=== PATIENT | female | born 1955 | race Caucasian/White ===

== ENCOUNTER 2021-06-18 01:59 | Outpatient (CLI) | payer BC, SELFPAY ==
--- NOTE | 2021-06-18 13:00 | DI.MAMMO_ITS ---
Exam(s) MAMMO SCREENING EXAM: MAMMO SCREENING CLINICAL HISTORY: SCREENING FOR BREAST CANCER Z12.39. TECHNIQUE: Bilateral full field digital CC and MLO mammographic images were obtained with 3D tomosyn thesis and utilizing computer aided detection (CAD). COMPARISON: Prior mammograms dating back to 2014, the most recent being December 2018. FINDINGS: There is a right breast biopsy marker which is unchanged position from 2014. Just anterior to the biopsy marker clip on right CC view there is a density measuring 1.5 x 0.6 cm wh ich is unchanged from 2019 more evident than 2014. Better seen on the CC than the MLO view. Spot co mpression recommended. No malignant-appearing microcalcification groups in this region. Scattered b enign-appearing microcalcifications are noted in both breasts. Also vascular calcification both keena sts noted. In the left breast on the 3D MLO view there is a an asymmetric density-possible nodule located 9 cm i n from the nipple, measuring 8 by 6 millimeters. In the right breast there is also a 9 x 5 millimeter noncalcified asymmetric density-possible nodule located 11 cm in from the nipple on the MLO view. There is no significant architectural distortion nor skin thickening-retraction. IMPRESSION: Bilateral asymmetric densities-possible nodules. Spot compression bilateral views and ultrasound rec ommended BI-RADS Category 0 - Assessment Incomplete: Need additional imaging evaluation Breast Density - Category B - Scattered areas of fibroglandular density Breast density Category C or D implies that the patient has dense breast tissue. Dense breast tissue can make it harder to find cancer on a mammogram. Dense breast tissue is also associated with an incr eased risk of breast cancer. This information about the result of the mammogram report was provided to the patient to raise their awareness. Use this report when you speak with the patient about their risks for breast cancer, which includes their family history. At that time, you may recommend additional screening tests (Ultrasoun d or MRI) as these tests may add significant information. A negative radiographic report should not delay biopsy if a dominant or clinically suspicious mass is present. Up to ten percent of cancers are not identified on mammography. A negative report may reinforce clinical impression. Adenosis and dense breasts may obscure an underlying neoplasm. False positive reports average 6 to 10%. Patient will receive a letter notifying them of these results.
== END 2021-06-18 02:19 ==
PROVIDERS: Visit Provider Nurse Practitioner
DX: Z12.31 Encounter for screening mammogram for malignant neoplasm of breast (principal); R92.8 Other abnormal and inconclusive findings on diagnostic imaging of breast
CPT/HCPCS: 77063; 77067

== ENCOUNTER 2021-07-01 01:33 | Outpatient (CLI) | payer BC, SELFPAY ==
--- NOTE | 2021-07-01 | DI.US_ITS ---
Exam(s) US BREAST RT LIMITED US BREAST LT LIMITED MG MAMMO SCREEN CALL BACK BI EXAM: MG MAMMO SCREEN CALL BACK BI and bilateral ultrasound breast limited CLINICAL HISTORY: F/U ABNL MAMMO, DIONISIO ASYMMETRIC DENSITIES, R92.8. TECHNIQUE: Craniocaudal and mediolateral oblique Full Field Digital Mammography views of the bilater al breast with Computer Aided Diagnosis followed by Tomosynthesis and bilateral breast ultrasound. COMPARISON: Comparison is made with prior examinations. FINDINGS: Mammography/Tomosynthesis: Masses/Architectural Distortion: There is a biopsy clip in the upper-outer quadrant of the right keena [address]. The opacity in the upper outer quadrant of the right breast persists. It may represent fibrogla ndular tissue. It has a similar appearance compared to the prior examinations. On the right breast ultrasound, there is an area of decreased linear echogenicity at the 11 o'clock position of the right breast which may represent fibroglandular tissue. It does not have a masslike appearance under dire ct visualization. In the left breast, the asymmetric breast tissue in the upper aspect is again seen on the additional view. It has a similar appearance compared to prior examinations. Microcalcifictions: No suspicious pleomorphic-type are seen. Skin Thickening/Nipple Retraction: None. Bilateral breast US: Echotexture: Normal appearance of the glandular tissue. Shadowing: No suspicious foci. Cyst: There are cysts seen in the left breast including a complex cyst at the 2 o'clock position whic h may have an internal septation. No suspicious cystic or solid masses are seen in the left breast. Solid lesions: None seen. Ductal dilation: None. IMPRESSION: 1. No definite evidence for malignancy at this time. 2. A follow-up right mammogram and ultrasound of the right breast is requested at 3 months. 3. The findings were discussed with the patient on the date of the examination. BI-RADS Category 3 - Probably Benign Finding: Recommend follow-up imaging in 3 months Breast Density - Category B - Scattered areas of fibroglandular density Breast density Category C or D implies that the patient has dense breast tissue. Dense breast tissue can make it harder to find cancer on a mammogram. Dense breast tissue is also associated with an incr eased risk of breast cancer. This information about the result of the mammogram report was provided to the patient to raise their awareness. Use this report when you speak with the patient about their risks for breast cancer, which includes their family history. At that time, you may recommend additional screening tests (Ultrasoun d or MRI) as these tests may add significant information. A negative radiographic report should not delay biopsy if a dominant or clinically suspicious mass is present. Up to ten percent of cancers are not identified on mammography. A negative report may reinforce clinical impression. Adenosis and dense breasts may obscure an underlying neoplasm. False positive reports average 6 to 10%. Patient will receive a letter notifying them of these results.
== END 2021-07-01 01:53 ==
PROVIDERS: Visit Provider Nurse Practitioner
DX: Z12.31 Encounter for screening mammogram for malignant neoplasm of breast (principal); R92.8 Other abnormal and inconclusive findings on diagnostic imaging of breast
CPT/HCPCS: 76642; 77063; 77067

== ENCOUNTER 2021-09-21 00:20 | Outpatient (CLI) | payer BC, SELFPAY ==
--- NOTE | 2021-09-21 | DI.US_ITS ---
Exam(s) MG MAMMO DIAGNOSTIC UNI US BREAST RT LIMITED EXAM: MG MAMMO DIAGNOSTIC UNI CLINICAL HISTORY: DIAGNOSTIC, F/U ABNL MAMMO, 3 MO F/U,Z87.898. COMPARISON: US US BREAST RT LIMITED from 07/01/2021 Mammograms from 2013, 2018 and 2020. TECHNIQUE: Craniocaudal and mediolateral oblique Full Field Digital Mammography views of the breast with Computer Aided Diagnosis followed by Tomosynthesis and breast ultrasound. FINDINGS: Mammography/Tomosynthesis: Masses/Architectural Distortion: None seen. Stable area focal breast tissue density in the upper ou ter quadrant. Microcalcifications: Stable benign-appearing calcifications greatest in the upper outer quadrant. Va scular calcifications. No suspicious pleomorphic-type are seen. Skin Thickening/Nipple Retraction: None. Right breast US: Echotexture: Normal appearance of the glandular tissue. Shadowing: No suspicious foci. Cyst: 4 x 3 x 6 millimeter cyst 11 o'clock position, 3 centimeters from the nipple. Solid lesions: No change in appearance of linear hyperechoic area in the 11 o'clock position 1 cm fro m the nipple. Findings do not appear masslike. Ductal dilation: None. IMPRESSION: 1. No evidence of malignancy is noted. 2. Unless there is more urgent need, follow-up screening mammography is recommended, as per [employer] guidelines. The patient is due for bilateral mammography June 2022 BI-RADS Category 3 - Annual - Resume Annual Screening Breast Density - Category B - Scattered areas of fibroglandular density A negative radiographic report should not delay biopsy if a dominant or clinically suspicious mass is present. Up to ten percent of cancers are not identified on mammography. A negative report may reinforce clinical impression. Adenosis and dense breasts may obscure an underlying neoplasm. False positive reports average 6 to 10%. Patient will receive a letter notifying them of these results.
== END 2021-09-21 00:40 ==
PROVIDERS: Visit Provider Nurse Practitioner
DX: R92.8 Other abnormal and inconclusive findings on diagnostic imaging of breast (principal); N60.01 Solitary cyst of right breast; N60.81 Other benign mammary dysplasias of right breast
CPT/HCPCS: 76642; 77061; 77065; G0279

== ENCOUNTER 2021-11-02 13:35 | Outpatient (REF) | payer BC, SELFPAY ==
[2021-11-02 16:53] LABS: Abs Immature Grans 0.02 10^3/uL (0.0-0.06); Absolute Basophil Count 0.05 10^3/uL (0.0-0.2); Absolute Eosinophil Count 0.21 10^3/uL (0.0-0.7); Absolute Lymphocyte Count 2.75 10^3/uL (1.2-3.4); Absolute Monocyte Count 0.42 10^3/uL (0.1-0.8); Absolute Neutrophil Count 3.48 10^3/uL (1.2-6.7); Basophils % 0.7; HCT 41.7 % (36.0-46.0); Immature Grans % 0.3; Lymphocytes % 39.7; MCH 27.3 pg (27.0-33.0); MCHC 31.2 % (32.0-36.0); MCV 87.6 fL (80-95); Monocytes % 6.1; Neutrophils % 50.2; Platelet Count 250 10^3/uL (130-400); RBC 4.76 10^6/uL (3.93-5.22); RDW 14.5 % (11.7-14.6); RDW-SD 46.9 fL; WBC 6.93 10^3/uL (4.4-10.8)
[2021-11-02 18:11] LABS: ALT 30 U/L (14-59); AST 21 U/L (15-37); Albumin 3.5 g/dL (3.4-5.0); Alkaline Phosphatase 83 U/L (46-116); Anion Gap 7.5 mmol/L (3-11); BUN 19 mg/dL (7-18); Bilirubin, Total 0.4 mg/dL (0.2-1.0); CO2 28.5 mmol/L (21.0-32.0); CREATININE 0.7 mg/dL (0.55-1.02); Calcium 8.8 mg/dL (8.5-10.1); Calculated LDL 179 mg/dL (<100); Chloride 106 mmol/L (98-107); Cholesterol 267 mg/dL (<200); Glucose 89 mg/dL (74-106); HDL Cholesterol 63 mg/dL (40-60); Magnesium 2.3 mg/dL (1.8-2.4); Potassium 4.5 mmol/L (3.5-5.1); Sodium 142 mmol/L (136-145); Total Protein 6.8 g/dL (6.4-8.2); Triglyceride 125 mg/dL (<150)
== END 2021-11-02 13:36 | disposition home or self-care (01) ==
LOC: NCHCN 13:35
PROVIDERS: Visit Provider Nurse Practitioner Family
DX: K58.9 Irritable bowel syndrome, unspecified (principal); Z98.84 Bariatric surgery status; K21.9 Gastro-esophageal reflux disease without esophagitis; F33.41 Major depressive disorder, recurrent, in partial remission; F41.8 Other specified anxiety disorders; G47.33 Obstructive sleep apnea (adult) (pediatric); E78.5 Hyperlipidemia, unspecified; Z00.00 Encounter for general adult medical examination without abnormal findings
CPT/HCPCS: 80053; 80061; 83735; 85025

== ENCOUNTER 2022-08-19 17:10 | Outpatient (REF) | payer BC, OTHER, SELFPAY ==
--- NOTE | 2022-08-19 16:15 | SKI_PTH ---
PATIENT: Chelsie Dunham LOC: [facility]#:[id number] AGE/SX: 67/F ROOM: RE08/19/[address]: STU MARC NP : 1955 BED: DIS: 08/19/2022 SPEC #: [id number] RECD: 08/19/22 18:12 STATUS: JESSICA REQ #: [id number] NIGEL: 08/19/22 16:[address]: STU MARC DEPT: Surgical Specimen RECD BY: Angelia Whitt ENTERED: 08/19/22 18:13 SP TYPE: SKI BEBE DR: Unknown,Unknown Tissues: 1 - SKIN BIOPSY(SHAVE/PUNCH) Procedures: SKIN LEVEL 4 Comments: [id number]
[2022-08-19 18:51] LABS: ALT 32 U/L (14-59); AST 30 U/L (15-37); Albumin 3.8 g/dL (3.4-5.0); Alkaline Phosphatase 84 U/L (46-116); Anion Gap 9.5 mmol/L (3-11); BUN 16 mg/dL (7-18); Bilirubin, Total 0.3 mg/dL (0.2-1.0); CO2 25.5 mmol/L (21.0-32.0); CREATININE 0.8 mg/dL (0.55-1.02); Calcium 9.8 mg/dL (8.5-10.1); Calculated LDL 86 mg/dL (<100); Chloride 107 mmol/L (98-107); Cholesterol 188 mg/dL (<200); Estimated GFR 81.72 (mL/min/1.73m2); Glucose 101 mg/dL (74-106); HDL Cholesterol 63 mg/dL (40-60); Potassium 4.2 mmol/L (3.5-5.1); Sodium 142 mmol/L (136-145); Total Protein 7.2 g/dL (6.4-8.2); Triglyceride 198 mg/dL (<150)
== END 2022-08-19 17:11 | disposition home or self-care (01) ==
LOC: NCHCN 17:10
PROVIDERS: Visit Provider Nurse Practitioner Family
DX: L82.1 Other seborrheic keratosis (principal); E78.5 Hyperlipidemia, unspecified
CPT/HCPCS: 80053; 80061; 88305

== ENCOUNTER 2022-09-13 00:56 | Outpatient (CLI) | payer BC, SELFPAY ==
--- NOTE | 2022-09-13 08:00 | DI.MAMMO_ITS ---
Exam(s) MAMMO SCREENING EXAM: MAMMO SCREENING CLINICAL HISTORY: SCREENING, Z12.39; H/O ABNL MAMMO, Z87.898 TECHNIQUE: Mammograms were interpreted according to the usual protocol including computer analysis w [email or web address] CAD system, tomosynthesis and C-view imaging. COMPARISON: 2013 through 2021 FINDINGS: The breasts are composed of scattered fibroglandular densities, Breast Density category B. No suspicious masses or suspicious microcalcifications are seen. Biopsy marker clip is again noted i n the upper left breast. Scattered benign calcifications and vascular calcifications are noted. No skin thickening or abnormal axillary lymph nodes are seen. There has been no significant change from prior exams. IMPRESSION: BI-RADS Cat 2 - Benign Findings Yearly screening mammography is recommended. Breast Density - Category B, scattered fibroglandular densities. A negative radiographic report should not delay biopsy if a dominant or clinically suspicious mass is present. Up to ten percent of cancers are not identified on mammography. A negative report may reinforce clinical impression. Adenosis and dense breasts may obscure an underlying neoplasm. False positive reports average 6 to 10%. Patient will receive a letter notifying them of these results.
== END 2022-09-13 01:16 ==
PROVIDERS: Visit Provider Nurse Practitioner Family
DX: Z12.31 Encounter for screening mammogram for malignant neoplasm of breast (principal)
CPT/HCPCS: 77063; 77067

== ENCOUNTER → 2023-03-22 00:45 | Outpatient (CLI) | payer OTHER, BC, SELFPAY ==
--- NOTE | 2023-03-22 | DI.DEXA_ITS ---
Exam(s) XR DEXA BONE DENSITY W/WO MIGUE EXAM: XR DEXA BONE DENSITY W/WO MIGUE CLINICAL HISTORY: SCREENING FOR OSTEOPOROSIS Z13.820 TECHNIQUE: HoloLuminescent Horizon C densitometer analysis of left hip, lumbar spine and left forearm. Lat eral survey image of the thoracic and lumbar spine. COMPARISON: No exams were available for comparison FINDINGS: Lateral view of the thoracic and lumbar spine shows no evidence of compression fractures. Bone mineral density measurements of the lumbar spine correspond to a total T-score of 0.5, in the n ormal range. Bone mineral density measurements of the left hip correspond to a total T-score of -0.8. The femora l neck T-score is -1.3, in the mildly osteopenic range. . Theleft forearm bone mineral density measurements correspond to a T-score of the distal 3rd of -2.4, in the osteopenic range.. IMPRESSION: Normal bone mineral density of the lumbar spine. Osteopenia of forearm and hip.
== END ==
PROVIDERS: PCP Nurse Practitioner Family; Visit Provider Nurse Practitioner Family
DX: Z13.820 Encounter for screening for osteoporosis (principal); M81.0 Age-related osteoporosis without current pathological fracture
CPT/HCPCS: 77080

== ENCOUNTER 2023-08-08 11:30 | Outpatient (REF) | payer OTHER, BC, SELFPAY ==
[2023-08-08 16:03] LABS: HGB 13.3 g/dL (11.2-15.7); MCH 26.5 pg (27.0-33.0); MCHC 31.7 % (32.0-36.0); MCV 84 fL (80-95); MPV 10.8 fL (8.0-11.0); Platelet Count 274 10^3/uL (130-400); RBC 5.02 10^6/uL (3.93-5.22); RDW 14.6 % (11.7-14.6); RDW-SD 43.9 fL; WBC 7.77 10^3/uL (4.4-10.8)
[2023-08-08 16:53] LABS: ALT 34 U/L (14-59); AST 23 U/L (15-37); Albumin 3.7 g/dL (3.4-5.0); Alkaline Phosphatase 70 U/L (46-116); Anion Gap 9.6 mmol/L (3-11); BUN 15 mg/dL (7-18); CO2 28.4 mmol/L (21.0-32.0); CREATININE 0.9 mg/dL (0.55-1.02); Calcium 9.4 mg/dL (8.5-10.1); Calculated LDL 103 mg/dL (<100); Chloride 105 mmol/L (98-107); Cholesterol 204 mg/dL (<200); Estimated GFR 70.51 (mL/min/1.73m2); Glucose 107 mg/dL (74-106); HDL Cholesterol 83 mg/dL (40-60); Potassium 4.3 mmol/L (3.5-5.1); Sodium 143 mmol/L (136-145); Total Protein 7.1 g/dL (6.4-8.2); Triglyceride 90 mg/dL (<150)
[2023-08-08 16:54] LABS: Folate > 20.0 ng/mL (8.6-20.0); Vitamin B12 > 2000 pg/mL (193-986)
[2023-08-08 17:09] LABS: Hemoglobin A1C 5.7 % (<5.7)
[2023-08-08 17:35] LABS: Bilirubin, Total 0.4 mg/dL (0.2-1.0)
[2023-08-13 00:52] LABS: Thiamine (Vitamin B1), WB 178 nmol/L (70-180)
== END 2023-08-08 11:31 | disposition home or self-care (01) ==
LOC: NCHCN 11:30
PROVIDERS: PCP Nurse Practitioner Family; Visit Provider Nurse Practitioner Family
DX: E78.5 Hyperlipidemia, unspecified (principal)
CPT/HCPCS: 80053; 80061; 85027; 82607; 82746; 83036; 84425

== ENCOUNTER 2024-03-09 00:16 | Outpatient (CLI) | payer BC, SELFPAY ==
--- NOTE | 2024-03-09 | DI.MAMMO_ITS ---
Exam(s) MAMMO SCREENING EXAM: MAMMO SCREENING CLINICAL HISTORY: SCREENING, Z12.31. TECHNIQUE: Bilateral full field digital CC and MLO mammographic images were obtained with 3D tomosyn thesis and utilizing computer aided detection (CAD). COMPARISON: Prior mammograms were reviewed. FINDINGS: There has been no significant change in the appearance and distribution of the fibroglandular tissue. Benign-appearing microcalcifications again noted bilaterally. There are no new spiculated masses nor malignant appearing microcalcification groups. There is no significant architectural distortion nor skin thickening-retraction. IMPRESSION: No radiographic evidence of malignancy. BI-RADS Category 1 - Negative Breast Density - Category B - Scattered areas of fibroglandular density Breast density Category C or D implies that the patient has dense breast tissue. Dense breast tissue can make it harder to find cancer on a mammogram. Dense breast tissue is also associated with an incr eased risk of breast cancer. This information about the result of the mammogram report was provided to the patient to raise their awareness. Use this report when you speak with the patient about their risks for breast cancer, which includes their family history. At that time, you may recommend additional screening tests (Ultrasoun d or MRI) as these tests may add significant information. A negative radiographic report should not delay biopsy if a dominant or clinically suspicious mass is present. Up to ten percent of cancers are not identified on mammography. A negative report may reinforce clinical impression. Adenosis and dense breasts may obscure an underlying neoplasm. False positive reports average 6 to 10%. Patient will receive a letter notifying them of these results.
== END 2024-03-09 00:36 ==
LOC: DI 00:17
PROVIDERS: PCP Nurse Practitioner Family; Visit Provider Nurse Practitioner Family
DX: Z12.31 Encounter for screening mammogram for malignant neoplasm of breast (principal)
CPT/HCPCS: 77063; 77067

== ENCOUNTER 2024-03-26 10:10 | Outpatient (REF) | payer BC, SELFPAY | END 2024-03-26 10:11 | disposition home or self-care (01) | LOC: LBN 10:10 | PROVIDERS: PCP Nurse Practitioner Family; Visit Provider Obstetrics & Gynecology | DX: R30.0 Dysuria (principal); N90.7 Vulvar cyst; N30.10 Interstitial cystitis (chronic) without hematuria | CPT/HCPCS: 87077; 87086; 87186 ==

== ENCOUNTER 2024-04-17 14:37 | Outpatient (REF) | payer BC, SELFPAY | END 2024-04-17 14:38 | disposition home or self-care (01) | LOC: LBN 14:37 | PROVIDERS: PCP Nurse Practitioner Family; Visit Provider Obstetrics & Gynecology | DX: R30.0 Dysuria (principal); R82.89 Other abnormal findings on cytological and histological examination of urine | CPT/HCPCS: 87086 ==